=== PATIENT | male | born 1980 | race Caucasian/White ===

== ENCOUNTER 2019-03-05 05:42 | Day surgery (SDC) | payer OTHER ==
[2019-03-05] MEDS: BUPIVACAINE 0.25%/EPI (SDV) 10 ML INJ INJ
[2019-03-05] MEDS: ACETAMINOPHEN 500 MG TAB PO (06:48)
[2019-03-05] MEDS: SOD CHLORIDE 0.9% 1,000 ML IV (06:48)
[2019-03-05] MEDS ORDERED: CEFAZOLIN 2 GM/50 ML (PMX) 50 ML IVPB (07:00)
[2019-03-05] MEDS ORDERED: BUPIVACAINE 0.25%/EPI (SDV) 10 ML INJ (07:07)
[2019-03-05] MEDS ORDERED: LIDOCAINE 2% (SDV) 5 ML INJ (07:15)
[2019-03-05] MEDS ORDERED: FENTAnyl 50 MCG/ML VIAL ×2 (07:16→08:20)
[2019-03-05] MEDS ORDERED: ONDANSETRON 4 MG INJ (07:16)
[2019-03-05] MEDS ORDERED: SUCCINYLCHOLINE CHLORIDE 100 MG/5 ML SYG IV (07:16)
[2019-03-05] MEDS ORDERED: ROCURONIUM 50 MG INJ (07:16)
[2019-03-05] MEDS ORDERED: MIDAZOLAM 1 MG/ML 2 ML INJ (07:16)
[2019-03-05] MEDS ORDERED: FAMOTIDINE 20 MG INJ (07:16)
[2019-03-05] MEDS ORDERED: PROPOFOL 40 ML (07:16)
[2019-03-05] MEDS ORDERED: CEFAZOLIN 1 GM INJ (07:17)
[2019-03-05] MEDS ORDERED: HYDROmorphONE 1 MG/5 ML IV SYRINGE IV ×3 (07:30)
[2019-03-05] MEDS ORDERED: FENTAnyl 50 MCG/ML VIAL IV ×2 (07:30)
[2019-03-05] MEDS ORDERED: morphine 2 MG INJ IV ×2 (07:30)
[2019-03-05] MEDS ORDERED: LABETALOL HCL 20MG INJ IV (07:30)
[2019-03-05] MEDS ORDERED: ALBUTEROL 0.083% (NEB) 2.5 MG/3 ML AMP HHN (07:30)
[2019-03-05] MEDS ORDERED: EPHEDrine 25 MG/5 ML SYG IV (07:30)
[2019-03-05] MEDS ORDERED: hydrALAzine 20 MG INJ IV (07:30)
[2019-03-05] MEDS ORDERED: DIPHENHYDRAMINE 50 MG INJ IV (07:30)
[2019-03-05] MEDS ORDERED: ONDANSETRON 4 MG INJ IV ×2 (07:30→09:00)
[2019-03-05] MEDS ORDERED: OXYCODONE/ACETAMINOPHEN (5/325) TAB PO ×2 (07:30)
[2019-03-05] MEDS ORDERED: MEPERIDINE 25 MG INJ IV (07:30)
[2019-03-05] MEDS ORDERED: IBUPROFEN 600 MG TAB PO (09:00)
== END 2019-03-05 10:20 | disposition home or self-care (01) ==
LOC: SDS 05:42
DX: L92.8 Other granulomatous disorders of the skin and subcutaneous tissue (principal); L72.0 Epidermal cyst; L02.215 Cutaneous abscess of perineum
CPT/HCPCS: 11423; 88307

== ENCOUNTER 2019-03-11 17:36 | Emergency (ER) | payer OTHER ==
[2019-03-11 18:09] LABS: ADD MAN DIFF? NO
[2019-03-11] MEDS: PIPER-TAZO 3.375 GM IV (PMX) 100 ML IVPB (18:17)
[2019-03-11] MEDS: SOD CHLORIDE 0.9% 1,000 ML IV (18:18)
[2019-03-11] MEDS: HYDROmorphONE 1 MG/ML SYG IV (18:18)
[2019-03-11] MEDS: ONDANSETRON 4 MG INJ IV (18:18)
[2019-03-11] MEDS: VANCOMYCIN 1 GM (PMX) 250 ML IVPB (18:56)
[2019-03-11 19:45] LABS: WHITE BLOOD COUNT 8.5 10^3/ul (4.8-10.8)
[2019-03-11 19:46] LABS: BASOPHIL # 0.1 10^3/ul (0.0-0.1); BASOPHILS % 0.7 % (0.0-2.0); EOSINOPHILS # 0.2 10^3/ul (0.0-0.5); EOSINOPHILS % 1.9 % (0.0-7.0); HEMATOCRIT 45.6 % (42.0-52.0); HEMOGLOBIN 15.2 g/dl (14.0-18.0); LYMPHOCYTES # 2.2 10^3/ul (0.8-2.9); LYMPHOCYTES % 25.9 % (15.0-51.0); MEAN CORPUSCULAR HEMOGLOBIN 31.4 pg (29.0-33.0); MEAN CORPUSCULAR HGB CONC 33.3 g/dl (32.0-37.0); MEAN CORPUSCULAR VOLUME 94.2 fl (82.0-101.0); MEAN PLATELET VOLUME 11.7 fl (7.4-10.4); MONOCYTE # 0.5 10^3/ul (0.3-0.9); MONOCYTES % 6.1 % (0.0-11.0); NEUTROPHIL # 5.5 10^3/ul (1.6-7.5); NEUTROPHILS % 64.8 % (39.0-77.0); PLATELET COUNT 222 10^3/UL (140-415); RED BLOOD COUNT 4.84 10^6/ul (4.70-6.10); RED CELL DISTRIBUTION WIDTH 12.5 % (11.5-14.5)
[2019-03-11 20:00] LABS: ANION GAP 12 (5-13); BLOOD UREA NITROGEN 15 mg/dl (7-20); CALCIUM 9.5 mg/dl (8.4-10.2); CARBON DIOXIDE 21 mmol/L (21-31); CHLORIDE 105 mmol/L (97-110); CREATININE 0.86 mg/dl (0.61-1.24); Estimated GFR > 60 mL/min (>60); GLUCOSE 113 mg/dl (70-220); POTASSIUM 3.8 mmol/L (3.5-5.1); SODIUM 138 mmol/L (135-144)
[2019-03-11 20:20] LABS: INR 0.88; PT RATIO 0.9
== END 2019-03-11 21:17 | disposition home or self-care (01) ==
LOC: E/R 17:36
DX: L76.22 Postprocedural hemorrhage of skin and subcutaneous tissue following other procedure (principal); I10 Essential (primary) hypertension; F17.210 Nicotine dependence, cigarettes, uncomplicated; Z91.040 Latex allergy status
CPT/HCPCS: 36415; 80048; 85025; 85610; 85730; 96374; 96375; 99284-25